=== PATIENT | female | born 1980 | race Caucasian/White ===

== ENCOUNTER 2022-08-02 18:02 | Emergency (ER) | payer SELFPAY ==
[~2022-08-02] VITALS: Ht 165.1 cm; Wt 105.0 kg
[2022-08-02 18:05] VITALS: BP 179/122
[2022-08-02] MEDS ORDERED: LIDOCAINE HCL/EPINEPHRINE 1%-EPI 1:100,000 20 ML VIAL INFIL ONE (19:45)
[2022-08-02] MEDS ORDERED: LIDOCAINE HCL/EPINEPHRINE 1%-EPI 1:100,000 10 ML VIAL INFIL NR (20:00)
[2022-08-02] MEDS ORDERED: TOPUD PO (20:48)
== END 2022-08-02 21:00 | disposition home or self-care (01) ==
LOC: ER 18:02
DX: S01.01XA Laceration without foreign body of scalp, initial encounter (principal); W01.0XXA Fall on same level from slipping, tripping and stumbling without subsequent striking against object, initial encounter; Y93.89 Activity, other specified; Y92.9 Unspecified place or not applicable; Z98.890 Other specified postprocedural states
CPT/HCPCS: 12001; 70450; 99284; J3490; Z7610